=== PATIENT | male | born 1975 | race Caucasian/White ===

== ENCOUNTER 2016-08-23 15:27 | Emergency (ER) | payer SELFPAY ==
[~2016-08-23] VITALS: Ht 190.5 cm; Wt 87.4 kg
[2016-08-23 15:30] VITALS: BP 136/92; PULSE 119; RESP 16; TEMP 99; O2SAT 99
--- NOTE | 2016-08-23 15:39 | PD ---
HPI Chief Complaint: Back/ Neck Pain or Injury Time Seen by Provider: 15:35 Travel History International Travel<30 days: No Contact w/Intl Traveler<30days: No Traveled to known affect area: No History of Present Illness HPI 41-year-old male history of discectomy of L4-L5/L5-S1 in 2011 presents the emergency Department with an onset right-sided sciatic is status post moving a smoker yesterday at home. Patient denies weakness but has shooting pain into the right hip and thigh. He denies numbness, tingling, or bowel or bladder problems. He's been taking [id number] medications without improvement. He states he feels better if he stands. It is worse with cough, sneeze, and sitting. He has no known drug allergies. PFSH Social History Alcohol Use: Yes Tobacco Use: Yes Substance Use: No Allergies-Medications (Allergen,Severity, Reaction): Coded Allergies: No Known Allergies (Unverified , 08/23/16) Reported Meds & Prescriptions Reported Meds & Active Scripts Active Prednisone 20 Mg Tab 20 Mg PO BID Orphenadrine CR (Orphenadrine Citrate) 100 Mg Tab 100 Mg PO Q12HR Lortab (Hydrocodone-Acetaminophen) 5-325 Mg Tab 1-2 Tab PO Q6H PRN Review of Systems Except as stated in HPI: all other systems reviewed are Neg General / Constitutional: No: Fever Eyes: No: Visual changes HENT: No: Headaches Cardiovascular: No: Chest Pain or Discomfort Respiratory: No: Shortness of Breath Gastrointestinal: No: Abdominal Pain Genitourinary: No: Dysuria Musculoskeletal: Positive: Arthralgias, Limited ROM, Pain Skin: No Rash Neurologic: No: Weakness Psychiatric: No: Depression Endocrine: No: Polydipsia Hematologic/Lymphatic: No: Easy Bruising Physical Exam Narrative GENERAL: Patient appears in moderate distress. SKIN: Warm and dry. Normal color. Normal turgor. HEAD: Atraumatic. Normocephalic. EYES: Pupils equal and round. No scleral icterus. No injection or drainage. ENT: No nasal bleeding or discharge. Mucous membranes pink and moist. Pharynx is clear. Airway is patent. NECK: Trachea midline. Supple and nontender. CARDIOVASCULAR: Regular rate and rhythm. RESPIRATORY: No accessory muscle use. Clear to auscultation. Breath sounds equal bilaterally. MUSCULOSKELETAL: Extremities without clubbing, cyanosis, or edema. No obvious deformities. Patient has positive straight leg raise pain on the left at 35. He has no collateral straight leg raise pain. Deep tendon reflexes are 2+ and equal bilaterally. Patellar and Achilles tendon. Romberg is down bilaterally. Patient is able to. On his tippy toes and stand on his right leg without help. NEUROLOGICAL: Awake and alert. No obvious cranial nerve deficits. Motor grossly within normal limits. Five out of 5 muscle strength in the arms and legs. Normal speech. PSYCHIATRIC: Appropriate mood and affect; insight and judgment normal. Data Data Last Documented VS Vital Signs Date Time Temp Pulse Resp B/P Pulse Ox O2 Delivery O2 Flow Rate FiO2 08/23/16 15:30 99.0 119 16 136/92 99 Orders Ketorolac Inj (Toradol Inj) (08/23/16 15:45) Prednisone (Deltasone) (08/23/16 15:45) [facility] Medical Decision Making Medical Screen Exam Complete: Yes Emergency Medical Condition: Yes Differential Diagnosis Lumbago. Right-sided sciatica. Low back strain. Narrative Course Patient is in pain but medically stable at time of exam. Radiographic imaging is not felt warranted based on my history and physical. Patient is given Toradol 60 mg IM. Patient is given a first dose of prednisone 60 mg by mouth. Patient is discharged home with continued prednisone 20 mg twice a day 5 days. Patient is also given Norflex 100 mg twice a day #10. Patient also given Lortab 1-2 tabs every 6 hours when necessary #20. Patient is to rest, use heat and ice, and frequent walking. Patient is to follow up if symptoms do not improve or worsen in the next several days. Diagnosis Primary Impression: Sciatica of right side Referrals: [facility] Patient Instructions: General Instructions, Sciatica (ED) Additional Instructions: Radiographic imaging is not felt warranted based on my history and physical. Patient is given Toradol 60 mg IM. Patient is given a first dose of prednisone 60 mg by mouth. Patient is discharged home with continued prednisone 20 mg twice a day 5 days. Patient is also given Norflex 100 mg twice a day #10. Patient also given Lortab 1-2 tabs every 6 hours when necessary #20. Patient is to rest, use heat and ice, and frequent walking. Patient is to follow up if symptoms do not improve or worsen in the next several days. Med/Other Pt SpecificInfo: Prescription(s) given Scripts Prednisone 20 Mg Tab20 Mg PO BID #10 TAB Prov:Yazmin Juan MD 08/23/16 Orphenadrine ER 12 HR (Orphenadrine CR)100 Mg [id number] Mg PO Q12HR #10 TAB Prov:Yazmin Juan MD 08/23/16 Hydrocodone-Acetaminophen (Lortab)5-325 Mg Tab1-2 Tab PO Q6H PRN (PAIN) #20 TAB Prov:Yazmin Juan MD 08/23/16 Disposition: 01 DISCHARGE HOME Condition: Stable Andrzej Lea August 23, 2016 15:39
[2016-08-23] MEDS ORDERED: PRED20 PO (15:41)
[2016-08-23] MEDS ORDERED: ORPH100T99 PO (15:41)
[2016-08-23] MEDS ORDERED: HYDR-3533 PO (15:41)
[2016-08-23] MEDS ORDERED: predniSONE 20 MG TAB PO ONE (15:45)
[2016-08-23] MEDS ORDERED: KETOROLAC TROMETHAMINE 60 MG/2 ML (IM) VIAL IM ONE (15:45)
== END 2016-08-23 15:50 | disposition home or self-care (01) ==
LOC: PHEFT 15:27
DX: M54.31 Sciatica, right side (principal); Z72.0 Tobacco use; Z87.39 Personal history of other diseases of the musculoskeletal system and connective tissue; X50.0XXA Overexertion from strenuous movement or load, initial encounter
CPT/HCPCS: 96372; 99283; J1885; J7512